=== PATIENT | female | born 1990 | race Caucasian/White ===

== ENCOUNTER 2022-11-07 17:56 | Emergency (ER) | payer MEDICAID ==
[~2022-11-07] VITALS: Ht 165.1 cm; Wt 58.0 kg
[2022-11-07 20:54] VITALS: BP 125/69; PULSE 95; RESP 16; TEMP 101.6; O2SAT 99
[2022-11-07] MEDS ORDERED: AUG875T PO (20:55)
[2022-11-07] MEDS ORDERED: cefTRIAXone SOD 1,000 MG VL IM ONE (21:00)
== END 2022-11-07 21:14 | disposition home or self-care (01) ==
LOC: ER 17:56
DX: H66.92 Otitis media, unspecified, left ear (principal); H60.12 Cellulitis of left external ear
CPT/HCPCS: 96372; 99283; J0696